=== PATIENT | female | born 1960 | race Caucasian/White ===

== ENCOUNTER 2016-10-24 13:08 | Emergency (ER) | payer OTHER ==
[~2016-10-24] VITALS: Ht 160 cm; Wt 72.6 kg
[~2016-10-24 13:08] MED LIST: FLUT16SP16; IBUP-1481
[2016-10-24 13:24] VITALS: BP 126/62
== END 2016-10-24 13:53 | disposition left against medical advice (07) ==
LOC: ER 13:12
DX: Z53.21 Procedure and treatment not carried out due to patient leaving prior to being seen by health care provider (principal)
CPT/HCPCS: A4606; Z7610

== ENCOUNTER 2019-09-29 11:29 | Emergency (ER) | payer OTHER ==
[~2019-09-29] VITALS: Ht 157.5 cm; Wt 74.8 kg
[~2019-09-29 11:29] MED LIST changes: -IBUP-1481; +IBUP-1953
--- NOTE | 2019-09-29 11:35 | NUR ---
yaw, from home, had a near syncope in bed, got up really fast. Patient a/ox4, breathing even and unlabored, no distress noted. Attached to the media monitor. Will continue to monitor.
[2019-09-29 11:58] LABS: BASOPHILS % (AUTO) 0.9 % (0.0-2.0); EOSINOPHILS % (AUTO) 0.5 % (0.0-6.0); HEMATOCRIT 44 % (33-45); LYMPHOCYTES # (AUTO) 1.6 /CMM (0.8-4.8); LYMPHOCYTES % (AUTO) 31.4 % (20.0-44.0); MEAN CORPUSCULAR HGB CONC 34 g/dl (31.0-36.0); MEAN CORPUSCULAR VOLUME 91 fL (82-100); MONOCYTES # (AUTO) 0.3 /CMM (0.1-1.30); MONOCYTES % (AUTO) 6.1 % (2.0-12.0); NEUTROPHILS # (AUTO) 3.1 /CMM (1.8-8.9); NEUTROPHILS % (AUTO) 61.1 % (43.0-81.0); PLATELET COUNT (AUTO) 188 /CMM (150-450); RED BLOOD CELL COUNT(AUTO) 4.85 MIL/uL (4.0-5.2); WHITE BLOOD COUNT (AUTO) 5.1 K/uL (4.3-11.0)
[2019-09-29] MEDS ORDERED: IV NS 0.9% 1,000 ML BAG IV ONE (12:00)
[2019-09-29 12:13] LABS: CALCIUM, SERUM 9.5 mg/dL (8.5-10.1); CARBON DIOXIDE 26 mmol/L (21-32); CHLORIDE 101 mmol/L (98-107); CREATININE 0.7 mg/dL (0.6-1.3); GLUCOSE 335 mg/dL (74-106); POTASSIUM 3.9 mmol/L (3.5-5.1); SODIUM SERUM 136 mmol/L (136-145); UREA NITROGEN, BLOOD 9 mg/dL (7-18)
[2019-09-29 12:22] LABS: ALANINE AMINOTRANSFERASE 41 U/L (12-78); ALBUMIN 3.9 g/dL (3.4-5.0); ALKALINE PHOSPHATASE 98 U/L (46-116); ASPARTATE AMINOTRANSFERASE 25 U/L (15-37); BILIRUBIN,DIRECT 0.1 mg/dL (0.0-0.2); BILIRUBIN,TOTAL 0.3 mg/dL (0.2-1.0); TOTAL PROTEIN, SERUM 7.2 g/dL (6.4-8.2)
--- NOTE | 2019-09-29 12:30 | NUR ---
Patient is resting comfortably in bed with eyes closed. Easily aroused. VSS
[2019-09-29 13:20] VITALS: BP 158/97
--- NOTE | 2019-09-29 13:20 | NUR ---
IV removed. Catheter intact and site benign. Pressure and 4x4 applied to site. No bleeding noted.Patient discharged to home in stable condition. Written and verbal after care instructions given. Patient verbalizes understanding of instruction.
== END 2019-09-29 13:21 | disposition home or self-care (01) ==
LOC: ER 11:31
DX: R55 Syncope and collapse (principal); M81.0 Age-related osteoporosis without current pathological fracture; F17.200 Nicotine dependence, unspecified, uncomplicated; Z79.899 Other long term (current) drug therapy
CPT/HCPCS: 36415; 71045; 80048; 80076; 84484; 85025; 93005; 96360; 99284; J7030

== ENCOUNTER 2024-01-06 18:20 | Inpatient (IN) | payer MEDICAID, OTHER ==
[~2024-01-06] VITALS: Ht 162.6 cm; Wt 81.2 kg
[2024-01-06 18:44] LABS: BASOPHILS # (AUTO) 0.1 K/uL (0.0-0.2); BASOPHILS % (AUTO) 0.6 % (0.0-2.0); EOSINOPHILS % (AUTO) 0.3 % (0.0-6.0); HEMATOCRIT 45 % (33-45); HEMOGLOBIN 15.6 g/dL (11.5-14.8); LYMPHOCYTES # (AUTO) 2.5 K/uL (0.8-4.8); LYMPHOCYTES % (AUTO) 25.9 % (20.0-44.0); MEAN CORPUSCULAR HEMOGLOBIN 31 PG (26.0-33.0); MEAN CORPUSCULAR HGB CONC 34 g/dl (31.0-36.0); MEAN CORPUSCULAR VOLUME 89 fL (82-100); MONOCYTES # (AUTO) 0.6 K/uL (0.1-1.30); MONOCYTES % (AUTO) 5.8 % (2.0-12.0); NEUTROPHILS # (AUTO) 6.6 K/uL (1.8-8.9); NEUTROPHILS % (AUTO) 67.4 % (43.0-81.0); PLATELET COUNT (AUTO) 246 K/uL (150-450); RED BLOOD CELL COUNT(AUTO) 5.09 MIL/uL (4.0-5.2); RED CELL DISTRIBUTION WIDTH 13.3 % (11.5-15.0); WHITE BLOOD COUNT (AUTO) 9.8 K/uL (4.3-11.0)
[2024-01-06 18:50] LABS: MAGNESIUM 1.4 mg/dL (1.8-2.4)
[2024-01-06 18:51] LABS: CALCIUM, SERUM 9.7 mg/dL (8.5-10.1); CARBON DIOXIDE 23 mmol/L (21-32); CHLORIDE 96 mmol/L (98-107); CREATININE 0.7 mg/dL (0.6-1.3); GLUCOSE 198 mg/dL (74-106); POTASSIUM 3.2 mmol/L (3.5-5.1); SODIUM SERUM 132 mmol/L (136-145); UREA NITROGEN, BLOOD 10 mg/dL (7-18)
[2024-01-06] MEDS: IV NS 0.9% 1,000 ML BAG IV ONE (19:07)
[2024-01-06 19:39] LABS: THYROID STIMULATING HORMONE 1.4 uIU/mL (0.358-3.74)
[2024-01-06] MEDS ORDERED: Magnesium 1GM/D5W 100ML PREMIX 100 ML IV ONE ×2 (19:53→22:23)
[2024-01-06] MEDS: Magnesium 1GM/D5W 100ML PREMIX 100 ML IV ONE ×2 (19:54→22:38)
[2024-01-06] MEDS ORDERED: POTASSIUM CHLORIDE 10 MEQ TABLET.SA ONE (22:25)
[2024-01-06] MEDS: POTASSIUM CHLORIDE 10 MEQ TABLET.SA PO ONE (22:38)
[2024-01-07 01:00] VITALS: BP 157/82; TEMP 97.8; O2SAT 97
[2024-01-07] MEDS ORDERED: ACETAMINOPHEN 650 MG/20.3 ML UDC NG PRN (02:30)
[2024-01-07] MEDS ORDERED: METOPROLOL TARTRATE INJ 5 MG/5 ML AMPUL IVP PRN (02:30)
[2024-01-07] MEDS ORDERED: HYDROCODONE/APAP 5/325MG TABLET PO PRN (02:30)
[2024-01-07] MEDS ORDERED: HYDROCODONE/APAP 10/325MG TABLET PO PRN (02:30)
[2024-01-07 05:00] VITALS: BP 136/79; TEMP 97.5; O2SAT 97
[2024-01-07 05:55] LABS: BASOPHILS # (AUTO) 0.1 K/uL (0.0-0.2); BASOPHILS % (AUTO) 0.6 % (0.0-2.0); EOSINOPHILS # (AUTO) 0.1 K/uL (0.0-0.7); EOSINOPHILS % (AUTO) 0.9 % (0.0-6.0); HEMATOCRIT 41 % (33-45); HEMOGLOBIN 13.9 g/dL (11.5-14.8); LYMPHOCYTES # (AUTO) 2.4 K/uL (0.8-4.8); LYMPHOCYTES % (AUTO) 26.6 % (20.0-44.0); MEAN CORPUSCULAR HEMOGLOBIN 30 PG (26.0-33.0); MEAN CORPUSCULAR HGB CONC 34 g/dl (31.0-36.0); MEAN CORPUSCULAR VOLUME 89 fL (82-100); MONOCYTES # (AUTO) 0.7 K/uL (0.1-1.30); NEUTROPHILS # (AUTO) 5.8 K/uL (1.8-8.9); NEUTROPHILS % (AUTO) 63.9 % (43.0-81.0); PLATELET COUNT (AUTO) 221 K/uL (150-450); RED BLOOD CELL COUNT(AUTO) 4.58 MIL/uL (4.0-5.2); RED CELL DISTRIBUTION WIDTH 13.3 % (11.5-15.0); WHITE BLOOD COUNT (AUTO) 9.1 K/uL (4.3-11.0)
[2024-01-07 06:08] LABS: CALCIUM, SERUM 9.5 mg/dL (8.5-10.1); CREATININE 0.7 mg/dL (0.6-1.3)
[2024-01-07 06:19] LABS: FREE T4 (FREE THYROXINE) 0.99 ng/dL (0.76-1.46); THYROID STIMULATING HORMONE 2.206 uIU/mL (0.358-3.74)
[2024-01-07] MEDS ORDERED: FENO135C4 PO (08:00)
[2024-01-07] MEDS ORDERED: GLIM2TAB31 PO (08:00)
[2024-01-07] MEDS ORDERED: VALS1TAB4 PO (08:00)
[2024-01-07 08:26] LABS: MAGNESIUM 2.1 mg/dL (1.8-2.4)
[2024-01-07] MEDS ORDERED: FENOFIBRATE NANOCRYS (145 MG) 145 MG TABLET PO SCH (09:00)
[2024-01-07] MEDS ORDERED: ENOXAPARIN SODIUM 40 MG/0.4 ML DISP.SYRIN SQ SCH (09:00)
[2024-01-07] MEDS ORDERED: METF-440 PO (09:00)
[2024-01-07] MEDS ORDERED: VALS160T2 PO (09:00)
[2024-01-07] MEDS ORDERED: METO25TA3 PO (09:00)
[2024-01-07] MEDS: GLIMEPIRIDE 1 MG TABLET PO SCH (09:34)
[2024-01-07] MEDS: METOPROLOL TARTRATE 50 MG TABLET PO SCH (09:34)
[2024-01-07 09:35] VITALS: BP 148/83
[2024-01-07] MEDS: ATORVASTATIN 40 MG TABLET PO SCH (09:35)
[2024-01-07] MEDS: VALSARTAN 80 MG TABLET PO SCH (09:35)
== END 2024-01-07 09:45 | disposition home or self-care (01) | DRG 201 ==
LOC: ER 18:26 → TELE1 22:02
PROVIDERS: ADMIT Internal Medicine; ATTEND Internal Medicine
DX: I47.20 Ventricular tachycardia, unspecified (principal); E11.9 Type 2 diabetes mellitus without complications; I10 Essential (primary) hypertension; E78.1 Pure hyperglyceridemia; E83.42 Hypomagnesemia; Z79.84 Long term (current) use of oral hypoglycemic drugs; E87.6 Hypokalemia
CPT/HCPCS: 36415; 71045-TC; 80048-TC; 80061-TC; 83735-TC; 83880; 84439-TC; 84443-TC; 84484-TC; 85025-TC; 85378-TC; 93307-TC; G0378; J3475; J7030